=== PATIENT | male | born 1985 | race Caucasian/White ===

== ENCOUNTER → 2022-10-07 08:50 | Outpatient (CLI) | payer OTHER, SELFPAY ==
--- NOTE | 2022-10-07 | DI.US.S_ITS ---
PROCEDURE: US ABDOMEN COMPLETE INDICATIONS: ABD PAIN TECHNIQUE: Real-time scanning was performed of the abdominal and retroperitoneal organs, with image documentation. COMPARISON: None. FINDINGS: Liver: Liver is normal in size and demonstrates normal overall echotexture. There is a nonvascular hyperechoic lesion seen on the right that measures up to 1 cm, without shadowing. Gallbladder: No findings of gallstones or sludge are seen. The gallbladder wall is not thickened, measuring 3 mm or less. No specific pericholecystic fluid is seen. The sonographic Henderson sign is negative. Biliary ducts: Intrahepatic bile ducts are non-dilated. Extrahepatic bile duct caliber measures 3 mm. Normal is 6-7 mm or less in diameter, or 10 mm or less post-cholecystectomy. Pancreas: Visualized portions of the pancreas are sonographically normal. Spleen: Spleen is normal in size and homogeneous in echotexture. Kidneys: Kidneys are normal in size and echotexture. Right kidney measures 10.7 cm long; left kidney measures 11.1 cm long. No hydronephrosis or nephrolithiasis. No solid masses. Aorta: Visualized aorta is normal in caliber at less than 3 cm. Iliacs: Proximal common iliac arteries are normal in caliber at less than 2.5 cm. IVC: Intrahepatic inferior vena cava is patent. Miscellaneous: No free abdominal fluid. IMPRESSION: No imaging explanation is found for this patient's presenting symptoms. The gallbladder demonstrates a normal sonographic appearance. No biliary dilatation is seen. Additional findings: 1 cm liver hemangioma Dictated by: Yaniv Mueller M.D. on 10/07/2022 at 11:29 Approved by: Yaniv Mueller M.D. on 10/07/2022 at 11:30
== END ==
PROVIDERS: PCP Nurse Practitioner Family; Referring Provider Nurse Practitioner Family; Visit Provider Nurse Practitioner Family
DX: D18.09 Hemangioma of other sites (principal); R19.04 Left lower quadrant abdominal swelling, mass and lump; R10.9 Unspecified abdominal pain
CPT/HCPCS: 76700